=== PATIENT | male | born 1995 | race Caucasian/White ===

== ENCOUNTER 2016-07-29 02:37 | Emergency (ER) | payer OTHER ==
[~2016-07-29] VITALS: Ht 188 cm; Wt 71.0 kg
[2016-07-29 02:40] VITALS: TEMP 36.5; Ht 188 cm; Wt 71.0 kg
--- NOTE | 2016-07-29 03:09 | EMERGENCY ROOM VISIT NOTE ---
History Report prepared by Jefry: Cheryl Sullivan Under the Supervision of: Dr. Shelia Seaman D.O. 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 Per the nursing staff the patient was found incontinent at [facility] and the police could not take him home because he did not remember where he lived. Source of History: patient Onset: just MEDICAL OFFICE SUPERVISOR Position: other (global) Quality: other (alcohol intoxication) Timing: other (episode) Note: Pt has incontinence. Review of Systems See HPI for pertinent positives & negatives. A total of 10 systems reviewed and were otherwise negative. Past Medical & Surgical Medical Problems: (1) No Known Active Medical Problems Family History No pertinent family history stated. Social History Smoking Status: Never Smoker Alcohol Use: occasionally Housing Status: lives with roommate Occupation Status: student Current/Historical Medications No Active Prescriptions or Reported Meds Allergies Coded Allergies: No Known Allergies (Unverified , 07/29/16) Physical Exam Vital Signs Date Time Temp Pulse Resp B/P Pulse Ox O2 Delivery O2 Flow Rate FiO2 07/29/16 07:10 81 16 110/53 Room Air 07/29/16 06:08 76 07/29/16 05:10 65 16 118/56 97 Room Air 07/29/16 04:09 71 16 97/69 98 Room Air 07/29/16 02:55 73 07/29/16 02:40 36.5 85 16 136/84 98 Room Air Physical Exam General: The patient is unresponsive. HEENT: Head - normocephalic and atraumatic Pupils are equal, round, 1mm and non-reactive to light. Extraocular eye muscles are intact, and sclera are anicteric. Nose - moist nasal mucosa without discharge. Mouth - moist buccal mucosa. Oropharynx is nonerythematous and there is no tonsillar exudate or edema noted. Neck: Supple; no JVD, nuchal rigidity, cervical lymphadenopathy. Heart: Regular rate and rhythm. There is a normal S1 and S2 with no murmurs, clicks, or gallops appreciated. Lungs: Clear to auscultation bilaterally with no wheezes, rales, or rhonchi. Abdomen: Soft, completely nontender, nondistended, with good bowel sounds. There are no palpable pulsatile masses or hepatosplenomegaly. There is no guarding, rigidity, or rebound noted. Extremities: No evidence of cyanosis, clubbing, or edema. There are easily palpable peripheral pulses. Skin: warm and dry with good turgor and no rashes. Medical Decision & Procedures Laboratory Results 07/29/16 02:48 Test 07/29/16 02:48 Anion Gap 9.0 mmol/L (3-11) Est Creatinine Clear Calc Drug Dose 97.0 ml/min Estimated GFR () 98.9 Estimated GFR (Non- 85.3 BUN/Creatinine Ratio 9.9 (10-20) Calcium Level 8.5 mg/dl (8.5-10.1) Ethyl Alcohol mg/dL 291.0 mg/dl (0-3) Laboratory results per my review. ED Course 0258: Past medical records reviewed. The patient was evaluated in room B3. A complete history and physical exam was performed. Laboratory studies were drawn as above. The patient was placed in the prone position to avoid aspiration. He was observed on the shelter monitor and pulse oximeter. 0432: I reevaluated the patient. He is sleeping and hemodynamically stable. 06 the patient is sleeping at this time. He is hemodynamically stable.05: 0730: The patient will be signed out to Dr. Salazar. Medical Decision The patient is a 21 year old male who presents to the ED with alcohol intoxication. Differential diagnosis includes alcohol overdose, drug intoxication, hypoglycemia, head injury. LABS: Normal Renal Function Glucose 109 Alcohol 291 this is a 21-year-old male patient who was found under the influence of alcohol and then incontin[place] of [place]. The patient was unresponsive during the emergency department stay and hemodynamically stable. Once the patient is more sober, he will be dispositioned by Dr. Salazar. Impression Primary Impression: Alcohol overdose Additional Impression: Urinary incontinence Scribe Attestation The scribe's documentation has been prepared under my direction and personally reviewed by me in its entirety. I confirm that the note above accurately reflects all work, treatment, procedures, and medical decision making performed by me. Departure Information Dispostion Still a Patient Prescriptions No Active Prescriptions or Reported Meds Patient Instructions My [facility] Problem Qualifiers
[2016-07-29 03:26] LABS: BUN/CREATININE RATIO 9.9 (10-20); CALCIUM 8.5 mg/dl (8.5-10.1); CREATININE 1.2 mg/dl (0.60-1.40); POTASSIUM 3.7 mmol/L (3.5-5.1)
[2016-07-29 10:39] VITALS: BP 145/85; PULSE 82; O2SAT 99
== END 2016-07-29 10:40 | disposition home or self-care (01) ==
LOC: C.EDB 02:39
DX: T51.91XA Toxic effect of unspecified alcohol, accidental (unintentional), initial encounter (principal); R32 Unspecified urinary incontinence